=== PATIENT | female | born 1940 | race Caucasian/White ===

== ENCOUNTER → 2016-12-22 | Outpatient (CLI) | payer MEDICARE, MEDICAID ==
[2014-02-14 14:43] VITALS: BP 135/84
[~2016-12-22] MED LIST: CLOP75TA PO; ESCI20TA PO; INSU100V8 SQ; LIRA0.6P SQ; LIRA0.6P2 SQ; MELO-150 PO; OMEP20CA9 PO; REGADENOSON 0.4 MG/5 ML DISP.SYRIN. IV ONE; VALS80TA3 PO
--- NOTE | 2016-12-23 14:15 | RAD ---
APPROVED REPORT Test Type: Pharmacological Stress Nurse/Tech: MICHELLE Brunson Test Indications: CAD Cardiac History: Hypertension, PPM, Stents, See Electronic Medical Record Medications: See Electronic Medical Record Medical History: See Electronic Medical Record Resting ECG: SR Resting Heart Rate: 73 bpm Resting Blood Pressure: 144/71mmHg Pretest Chest Pain: No chest pain Nurse/Tech Notes S1S2, Lungs clear/diminished @ bases, Denies CP or SOA Consent: The procedure was explained to the patient in lay terms. Informed consent was witnessed. Aditya eout was entered into [employer]. History and Stress Test performed by RT Toma (R) (N) Pharm. Details Pharmacologic stress testing was performed using 0.4mg per 5ml of regadenoson given intravenously ove r 7-10 seconds. Stress Symptoms No chest pain or symptoms. POST EXERCISE Reason for Termination: Infusion complete Max HR: 89 bpm Max Blood Pressure: 159/74mmHg Chest Pain: No. Arrhythmia: No. ST Change: No. INTERPRETATION Stress EKG Conclusion: No evidence of stress induced EKG changes. Imaging Protocol IMAGE PROTOCOL: Rest Tc-99m/stress Tc-99m 2 days Rest: Stress: Viability: Radiopharm.Tc99m IpfdznqpoTo85b Sestamibi Dose35.5mCi 41mCi Duration 15min. 15min. Img Date 12/22/2016 12/23/2016 Inj-Img [id number]. 60min. Rest Admin Site:IV - Right ForearmAdministrator:RT Jovon ChuaR)(N) Stress Admin Site: IV - Right ForearmAdministrator: RT Toma (R)(N) STRESS DATA End Diast. Vol.83.0mlAv. Heart Rate84.0bpm End Syst. Vol.11.0mlCO Index BSA0.0L/min Myocardial Fmxk120.0gEject. Pfhlxhgt21.0% Stress Rates Pk. Fill Rate2.76EDV/secLVtime Pk. Fill 90.14msec Pk. Empty Rate4.74ESV/secLVtime Pk. Kozgg528.03msec 08/19 Pk. Fill2.02EDV/sec Stress Scores Regional WT0.00Summed WT0.00 Regional WM0.00Summed WM3.00 The rest and stress images show normal perfusion, normal contraction and thickening. LV Perf. Quant 17 Seg. SSS1.00 17 Seg. SRS0.00 17 Seg. SDS1.00 Stress Defect Extent (% LAD)0.00Rest Defect Extent (% LAD)0.00Rev. Defect Extent (% LAD)0.00 Stress Defect Extent (% LCX) 17.50Rest Defect Extent (% LCX)0.00Rev. Defect Extent (% LCX)15.00 Stress Defect Extent (% RCA)0.00Rest Defect Extent (% RCA)0.00Rev. Defect Extent (% RCA)0.00 Stress Defect Extent (% JOSHUA)3.00Rest Defect Extent (% JOSHUA)0.00Rev. Defect Extent (% JOSHUA)2.60 Other Information Quality:Good Risk Assessment: Low Risk Conclusion 1. No evidence of EKG changes at stress. 2. Normal perfusion at stress/rest. 3. Normal EF at > 70% 4. Low risk study
--- NOTE | 2016-12-24 09:34 | CARD ---
APPROVED REPORT EXAM: Two-dimensional and M-mode echocardiogram with Doppler and color Doppler. Other Information Quality : Technically Limited Rhythm : NSRTechnically limited study due to body habitus. INDICATION Cardiac Disease: CAD 2D DIMENSIONS RVDd2.9 (2.9-3.5cm)Left Atrium(2D)4.1 (1.6-4.0cm) IVSd1.1 (0.7-1.1cm)Aortic Root(2D)3.1 (2.0-3.7cm) LVDd5.0 (3.9-5.9cm)LVOT Diameter2.2 (1.8-2.4cm) PWd1.0 (0.7-1.1cm)LVDs2.9 (2.5-4.0cm) FS (%) 39.4 %SV87.9 ml LVEF(%)70.2 (>50%) Aortic Valve AoV Peak Hernán.133.7cm/sAoV VTI30.8cm AO Peak GR.7.1mmHgLVOT Peak Hernán.108.0cm/s AO Mean GR.4mmHgAVA (VMAX)3.01cm2 Mitral Valve MV E Usrboxwf877.4cm/sMV DECEL GMFS103vv MV A Smgpxzvl556.1cm/sMV KZO02ka E/A Ratio1.0MV A Usmbjegv70vj MVA (PHT)3.01cm2 Tricuspid Valve TR P. Velcqprs598jl/sRAP RRUUORLO2zhZr TR Peak Gr.57neJnVXJO09faWq LEFT VENTRICLE The left ventricle is normal size. There is borderline to mild concentric left ventricular hypertroph y. Left ventricle systolic function is normal. The Ejection Fraction is 65-70%. There is normal LV se gmental wall motion. The left ventricular diastolic function and filling is normal for age. RIGHT VENTRICLE The right ventricle is normal size. The right ventricular systolic function is normal. ATRIA The left atrium size is normal. The right atrium size is normal. The interatrial septum is intact wit h no evidence for an atrial septal defect or patent foramen ovale as noted on 2-D or Doppler imaging. AORTIC VALVE The aortic valve is normal in structure and function. The aortic valve is trileaflet. Doppler and Col or Flow revealed trace aortic regurgitation. There is no significant aortic valvular stenosis. MITRAL VALVE Mitral annular calcification is mild to moderate. There is no mitral valve stenosis. Doppler and [place] r Flow revealed trace mitral regurgitation. TRICUSPID VALVE The tricuspid valve is normal in structure and function. Doppler and Color Flow revealed trace tricus pid regurgitation. The PA pressure was estimated at 23 mmHg. There is no tricuspid valve stenosis. PULMONIC VALVE The pulmonic valve is not well visualized. Doppler and Color Flow revealed no pulmonic valvular regur gitation. There is no pulmonic valvular stenosis. GREAT VESSELS The aortic root is normal in size. The IVC is normal in size and collapses >50% with inspiration. PERICARDIAL EFFUSION There is no evidence of significant pericardial effusion. Critical Notification Critical Value: No <Conclusion> Left ventricle systolic function is normal. The Ejection Fraction is 65-70%. There is normal LV segmental wall motion. There is borderline to mild concentric left ventricular hypertrophy.
== END | disposition home or self-care (01) ==
LOC: NM 10:41
PROVIDERS: ATTEND Internal Medicine Cardiovascular Disease
DX: I25.10 Atherosclerotic heart disease of native coronary artery without angina pectoris (principal)
CPT/HCPCS: 78452; 93017; 93306; 96374; 96375; A9500; J2785

== ENCOUNTER → 2017-02-12 | Outpatient (CLI) | payer MEDICARE, MEDICAID ==
[2014-02-14 14:43] VITALS: BP 135/84
[~2017-02-12] MED LIST changes: -ESCI20TA PO; +ESCITALOPRAM OX20 MG PO; -MELO-150 PO; +MELO15TA23 PO; -REGADENOSON 0.4 MG/5 ML DISP.SYRIN. IV ONE
--- NOTE | 2017-02-16 11:26 | RAD ---
APPROVED REPORT Patient Location : OUT-PATIENT Indications Lower Extremity Pain : Varicose Veins LT LEG WORSE THAN RT FOR VARICOSE VEINS Risk Factors Obesity Deep System Deep Venous Thrombosis present : No Deep Venous Reflux present : No Findings Gambino scale images of the bilateral saphenofemoral junctions, great saphenous veins and lesser sapheno us veins were obtained. The right saphenofemoral junction is dilated and measures approximately 14 mm with a reflux time of g reater than 2.5 seconds at the right common femoral vein. Due to insufficient Valsalva maneuver and l imited imaging there is no gross evidence of reflux noted at the right great saphenous vein. Proximal ly the right great saphenous vein measures approximately 2.7 mm. The right lesser saphenous vein jean ures approximately 4.5 mm and does not show any evidence of reflux. Nonetheless, multiple perforators are noted on the right side approximately 15 cm up in 10 cm back as well as 26 cm up and 12 cm back. Additional perforators are noted at 38 cm up and 13 cm back On the left the saphenofemoral junction is again dilated with the great saphenous vein measuring 1.8 mm. There is no significant reflux in the greater saphenous vein on the left side. The left lesser sa phenous vein was not well visualized. Multiple perforators are again noted on the left side at approx imately 12 cm up and 10 cm back as well as 20 cm up and 13 cm back. Additional perforators are noted approximately 30 cm up and 15 cm back. Critical Notification Critical Value: No <Conclusion> 1. Although there is no evidence of reflux in the greater and lesser saphenous veins on the right masoud e as well as the greater saphenous vein on the left side, the evidence of multiple perforators and di lation of the saphenofemoral junction is likely indicative of chronic venous insufficiency. The inabi lity to clearly demonstrate reflux of greater than 1 second is most likely related to due to poor Jordana kaycee maneuver and limited image quality. 2. Multiple bilateral perforators as noted above.
== END | disposition home or self-care (01) ==
LOC: US 12:59
PROVIDERS: ATTEND Internal Medicine Cardiovascular Disease
DX: I87.2 Venous insufficiency (chronic) (peripheral) (principal); I83.93 Asymptomatic varicose veins of bilateral lower extremities; M79.605 Pain in left leg; M79.604 Pain in right leg
CPT/HCPCS: 93970

== ENCOUNTER → 2018-10-26 | Outpatient (CLI) | payer MEDICARE, MEDICAID ==
[2014-02-14 14:43] VITALS: BP 135/84
[~2018-10-26] MED LIST changes: +OMEP20CA10 PO; -OMEP20CA9 PO
--- NOTE | 2018-10-26 12:50 | CARD ---
MR#: [id number] Date of Study: 10/26/2018 Ordering Physician: KATHY DOHERTY, Referring Physician: KATHY DOHERTY Tech: Padmini Munoz RDCS APPROVED REPORT EXAM: Two-dimensional and M-mode echocardiogram with Doppler and color Doppler. Other Information Quality : Good INDICATION Cardiac Disease: CAD 2D DIMENSIONS Left Atrium(2D)3.8 (1.6-4.0cm)IVSd0.9 (0.7-1.1cm) Aortic Root(2D)3.1 (2.0-3.7cm)LVDd5.0 (3.9-5.9cm) LVOT Diameter1.9 (1.8-2.4cm)PWd1.0 (0.7-1.1cm) LVDs2.8 (2.5-4.0cm)FS (%) 30.0 % SV88.0 mlLVEF(%)60.0 (>50%) Aortic Valve AoV Peak Hernán.140.1cm/sAoV VTI28.1cm AO Peak GR.7.8mmHgLVOT Peak Hernán.121.1cm/s AO Mean GR.5mmHgAVA (VMAX)2.54cm2 KATHARINE (VTI)2.70cm2 Mitral Valve MV E Cbtsdqlm761.1cm/sMV DECEL JRYO589kb MV A Qpdvfsnc109.2cm/sE/A Ratio0.8 Tricuspid Valve TR P. Zcqroglt759mc/sRAP RVWQJFTH6uoVv TR Peak Gr.46hpCqKDTV05vvKn Pulmonary Vein S1 Squwykoz57.6cm/sD2 Tbcvebiy98.4cm/s LEFT VENTRICLE The left ventricle is normal size. There is normal left ventricular wall thickness. The left ventricu lar systolic function is normal. The Ejection Fraction is 60-65%. There is normal LV segmental wall m otion. Transmitral Doppler flow pattern is Grade I-abnormal relaxation pattern. RIGHT VENTRICLE The right ventricle is normal size. The right ventricular systolic function is normal. ATRIA The left atrium size is normal. The right atrium size is normal. The interatrial septum is intact wit h no evidence for an atrial septal defect or patent foramen ovale as noted on 2-D or Doppler imaging. AORTIC VALVE The aortic valve is calcified but opens well. Doppler and Color Flow revealed no significant aortic r egurgitation. There is no significant aortic valvular stenosis. MITRAL VALVE The mitral valve is calcified but opens well. Mitral annular calcification is moderate. There is no e vidence of mitral valve prolapse. There is no mitral valve stenosis. Doppler and Color-flow revealed trace mitral regurgitation. TRICUSPID VALVE The tricuspid valve is normal in structure and function. Doppler and Color Flow revealed trace tricus pid regurgitation. The PA pressure was estimated at 28 mmHg. There is no tricuspid valve stenosis. PULMONIC VALVE The pulmonic valve is not well visualized. Doppler and Color Flow revealed no pulmonic valvular regur gitation. There is no pulmonic valvular stenosis. GREAT VESSELS The aortic root is normal in size. The ascending aorta is normal in size. The IVC is normal in size a nd collapses >50% with inspiration. PERICARDIAL EFFUSION There is no evidence of significant pericardial effusion. Critical Notification Critical Value: No <Conclusion> The left ventricular systolic function is normal. The Ejection Fraction is 60-65%. There is normal LV segmental wall motion. Transmitral Doppler flow pattern is Grade I-abnormal relaxation pattern. Trace mitral regurgitation. Trace tricuspid regurgitation. The PA pressure was estimated at 28 mmHg. There is no evidence of significant pericardial effusion. Signed by : Kathy Doherty, Electronically Approved : 10/26/2018 12:49:29
== END | disposition home or self-care (01) ==
LOC: ECHO 10:37
PROVIDERS: ATTEND Internal Medicine Cardiovascular Disease
DX: I25.10 Atherosclerotic heart disease of native coronary artery without angina pectoris (principal); R00.8 Other abnormalities of heart beat
CPT/HCPCS: 93306